=== PATIENT | male | born 1985 | race Caucasian/White ===

== ENCOUNTER 2017-02-24 21:16 | Emergency (ER) | payer OTHER ==
[~2017-02-24] VITALS: Ht 193 cm; Wt 74.3 kg
[~2017-02-24 21:16] MED LIST: CHLO.12%30 SSP; HYDR-3533 PO; IBUP800T23 PO
[2017-02-24 21:27] VITALS: BP 129/68; PULSE 76; RESP 18; TEMP 99; O2SAT 99
--- NOTE | 2017-02-24 22:19 | PD ---
HPI . Right hand laceration Chief Complaint: Laceration/Skin Injury Time Seen by Provider: 21:46 Travel History International Travel<30 days: No Contact w/Intl Traveler<30days: No Traveled to known affect area: No History of Present Illness HPI 31-year-old male patient presents emergency department for evaluation of the laceration he sustained to his right thumb earlier this afternoon when he was fishing and trying to clean a fish. The laceration is approximately 2.5 cm and is proximal to the MCJ joint. The patient has no major medical history. The patient denies any fever, chills, malaise, shortness breath, chest pain, nausea , vomiting, diarrhea. The right hand is neurologically intact. The patient has full range of motion in his right hand. PFSH Past Medical History Medical History: Denies Significant Hx Diminished Hearing: No Tetanus Vaccination: > 5 Years Influenza Vaccination: No ?: Not Past Surgical History Surgical History: No Previous Surgery Social History Alcohol Use: Yes (STATES WEEKLY) Tobacco Use: No Substance Use: No Allergies-Medications (Allergen,Severity, Reaction): Coded Allergies: No Known Allergies (Unverified , 07/28/15) Reported Meds & Prescriptions Reported Meds & Active Scripts Active Keflex (Cephalexin) 250 Mg Cap 250 Mg PO Q6H 5 Days Review of Systems Except as stated in HPI: all other systems reviewed are Neg Physical Exam Narrative GENERAL: Well-nourished, well-developed 31-year-old male patient in no acute distress. Nontoxic appearing. SKIN: 2.5 cm laceration to the right lateral aspect of the thumb proximal to the MCP joint. HEAD: Normocephalic. Atraumatic. EYES: No scleral icterus. No injection or drainage. NECK: Supple, trachea midline. No JVD or lymphadenopathy. CARDIOVASCULAR: Regular rate and rhythm without murmurs, gallops, or rubs. RESPIRATORY: Breath sounds equal bilaterally. No accessory muscle use. GASTROINTESTINAL: Abdomen soft, non-tender, nondistended. MUSCULOSKELETAL: No cyanosis, or edema. Data Data Last Documented VS Vital Signs Date Time Temp Pulse Resp B/P (MAP) Pulse Ox O2 Delivery O2 Flow Rate FiO2 02/24/17 21:27 99.0 76 18 129/68 (88) 99 Orders Orders Tetanus/Diphtheria Tox Adult (Tetanus/Di (02/24/17 22:30) Lidocaine 1% Inj (50 Ml) (Xylocaine 1% I (02/24/17 22:30) [facility] Medical Decision Making Medical Screen Exam Complete: Yes Emergency Medical Condition: Yes Differential Diagnosis Differential diagnoses include but not limited to laceration, cellulitis, wound Narrative Course 31-year-old male patient presents emergency department for evaluation of 2.5 similar laceration to the right lateral aspect of his thumb proximal to the MCP joint that he sustained earlier today while trying to clean a fish. The laceration was repaired. Please see my procedural narrative. Tetanus was updated during this visit. Patient retains full range of motion in his right hand. The right hand is neurovascularly intact. Patient is discharged home with prophylactic antibiotics due to the high risk of infection associated with hand lacerations. Patient instructed to get sutures removed in 10-14 days. Procedures Procedure Narrative LACERATION LOCATION: Right lateral thumb proximal to the MCP joint LENGTH: 2.5 cm NUMBER OF STITCHES/MARGARITO: 2 x 4. 0 Prolene REPAIR: The area of the laceration was prepped with Betadine and sterilely draped. The laceration was infiltrated with 1% lidocaine. The wound was copiously irrigated and explored without evidence of foreign body, tendon injury or neurovascular injury. The wound was closed using 2 simple interrupted using 4. 0 Prolene sutures. This was a single layer repair. A sterile dressing was applied. The patient was advised to keep the dressing clean and dry. Patient tolerated the procedure well. Diagnosis Primary Impression: Hand laceration Qualified Codes: S61.411A - Laceration without foreign body of right hand, initial encounter Referrals: Primary Care Physician Patient Instructions: General Instructions, Laceration (DC) Additional Instructions: Please return to emergency department if your symptoms return or worsen. Follow up with your primary care provider. Take medications as prescribed. Keep wound clean and dry. Get sutures removed in 10-14 days. Med/Other Pt SpecificInfo: Prescription(s) given Scripts Cephalexin (Keflex) 250 Mg Cap 250 MG PO Q6H for Infection for 5 Days, #20 CAP 0 Refills Prov: CodyKerrie 02/24/17 Disposition: 01 DISCHARGE HOME Condition: Stable Kerrie Ross Feb 24, 2017 22:19
[2017-02-24] MEDS ORDERED: CEPH-459 PO (22:21)
[2017-02-24] MEDS ORDERED: TETANUS/DIPHTHERIA TOXOID ADULT 0.5 ML VIAL IM ONE (22:30)
[2017-02-24] MEDS ORDERED: LIDOCAINE HCL 1% 50 ML VIAL INFIL ONE (22:30)
== END 2017-02-24 23:08 | disposition home or self-care (01) ==
LOC: PHED 21:16 → PHEFT 23:08
DX: S61.411A Laceration without foreign body of right hand, initial encounter (principal); Z23 Encounter for immunization; W45.8XXA Other foreign body or object entering through skin, initial encounter
CPT/HCPCS: 12001; 90471; 90714